=== PATIENT | female | born 1990 | race African-American/Black ===

== ENCOUNTER 2020-01-08 14:08 | Emergency (ER) | payer SELFPAY ==
[~2020-01-08] VITALS: Ht 165.1 cm; Wt 45.5 kg
[2020-01-08] MEDS ORDERED: IV NORMAL SALINE 1000ML BAG 1,000 ML IV ONE (15:00)
[2020-01-08] MEDS ORDERED: KETOROLAC 15 MG/ML VIAL. IVP ONE (15:30)
[2020-01-08] MEDS ORDERED: FAMOTIDINE 20 MG/2 ML VIAL IVP ONE (15:30)
[2020-01-08] MEDS ORDERED: ONDANSETRON PF 4 MG/2 ML VIAL. IVP ONE ×2 (15:30→17:30)
[2020-01-08 15:37] LABS: BASO % 0 % (0-3); EOS % 0 % (0-3); HEMOGLOBIN 13.8 g/dL (12.0-15.5); LYMPH # 1.2 x10^3/uL (1.0-4.8); LYMPH % 25 % (24-48); MEAN CORPUSCULAR HEMOGLOBIN 34 pg (25-35); MEAN CORPUSCULAR HGB CONC 34 g/dL (31-37); MEAN CORPUSCULAR VOLUME 100 fL (79-100); MONO # 0.3 x10^3/uL (0.0-1.1); MONO % 6 % (0-9); NEUT # 3.5 x10^3/uL (1.8-7.7); NEUT % 69 % (31-73); PLATELET COUNT 231 x10^3/uL (140-400); RED BLOOD COUNT 4.09 x10^6/uL (3.50-5.40); RED CELL DISTRIBUTION WIDTH 15.3 % (11.5-14.5); WHITE BLOOD COUNT 5.1 x10^3/uL (4.0-11.0)
[2020-01-08] MEDS ORDERED: IOHEXOL 300 MG/ML 100ML VIAL. IV ONE (15:45)
[2020-01-08] MEDS ORDERED: CONTRAST GIVEN. MC PRN (15:45)
[2020-01-08 15:47] LABS: PROTHROMBIN TIME PATIENT 13.5 SEC (11.7-14.0)
[2020-01-08 15:48] LABS: CALCIUM 9.6 mg/dL (8.5-10.1); GFR 78.2; POTASSIUM 3.6 mmol/L (3.5-5.1)
[2020-01-08 15:56] LABS: PREG TEST PT QUAL NEGATIVE (NEG)
[2020-01-08 16:06] LABS: ALBUMIN 4.1 g/dL (3.4-5.0); ALBUMIN/GLOBULIN RATIO 1.2 (1.0-1.7); MAGNESIUM 1.6 mg/dL (1.8-2.4); TOTAL BILIRUBIN 0.4 mg/dL (0.2-1.0); TOTAL PROTEIN 7.6 g/dL (6.4-8.2)
--- NOTE | 2020-01-08 16:48 | RAD ---
Study: CT abdomen/pelvis with intravenous contrast Indication: Right lower quadrant pain. Comparison: 06/27/2019 Technique: Helical CT imaging performed of the abdomen and pelvis after the intravenous administration of 75 cc Omnipaque 300 contrast. Sagittal and coronal reformats were obtained. One or more of the following individualized dose reduction techniques were utilized for this examination: 1. Automated exposure control 2. Adjustment of the mA and/or kV according to patient size 3. Use of iterative reconstruction technique. Findings: Chest: Unremarkable. Liver: Low-attenuation of the liver relative to the spleen. This could be in part related to bolus timing though a component of fatty infiltration is difficult to exclude. Gallbladder/Biliary Tree: Within normal limits. Pancreas: Unremarkable. Spleen: Within normal limits for size. Adrenal Glands: Unremarkable. Kidneys/Ureters/Bladder: Symmetric renal enhancement. The tiny intrarenal stone seen on the right on the 06/27/2019 comparison is not well visualized. No hydronephrosis. Unremarkable bladder. Reproductive Organs: Within normal limits for patient age. Colon: Large portion of the colon is not well evaluated due to a combination of underdistention and the lack of oral contrast. There does appear to be a small amount of free fluid within the right paracolic gutter such as on image 38 series 2 but the cause of this finding is uncertain and not definitively associated with the colon. Appendix: The appendix is not well seen a tubular structure at the right lower quadrant, image 39 series 2, appears to represent the right ovarian vein. Small Bowel: No findings to suggest obstruction. Stomach: Not well evaluated due to lack of distention and oral contrast. A crescentic region of fluid attenuation with surrounding enhancement at the ventral upper abdominal midline, image 28 series 2, appears to represent the distal stomach near the gastroduodenal junction. Vasculature: Nonaneurysmal aorta. Asymmetric engorgement of left hemipelvic veins. The right ovarian vein appears distended and is hypoattenuating until it approaches its IVC insertion but without ancillary findings to suggest thrombosis. Lymph Nodes: Within normal limits. Peritoneum and Body Wall: As above, small amount of fluid along the right paracolic gutter. No large volume free fluid within the pelvis. Bones: No acute or aggressive osseous process. Miscellaneous: None. Impression: 1. The study is made difficult by combination of patient body habitus with a paucity of mesenteric fat in addition to the lack of oral contrast. The appendix is not able to be well delineated. There does appear to be a small amount of free fluid within the right paracolic gutter but the etiology of this is uncertain. Note is made that no structure resembling the appendix is identified nor localized inflammatory changes at its expected location to suggest appendicitis. 2. Asymmetric engorgement of the left-sided pelvic veins. The presumed right ovarian vein is somewhat distended but without findings definitive of ovarian vein thrombosis. A process such as pelvic congestion is possible but this is typically a clinical diagnosis. 3. Additional observations as above. Electronically signed by: BILL COLE MD (01/08/2020 4:46 PM) [id number]
--- NOTE | 2020-01-08 17:12 | PHYS DOC ---
Past Medical History Past Medical History: Other Additional Past Medical Histor: Endometriosis, MALROTATION (SARA SMITH DO) Past Surgical History: Tubal ligation (SARA SMITH DO) Smoking Status: Current Every Day Smoker Alcohol Use: Occasionally Drug Use: Marijuana (SARA SMITH DO) General Adult EDM: Chief Complaint: ABDOMINAL PAIN HPI: HPI: Mrs. Villalobos is a 29-year-old -[place] female who presents with 2-day history of worsening right lower quadrant abdominal/pelvic pain. She reports waves of sharp and cramping abdominal/pelvic pain lasting 10 to 15 minutes which gives her a 10 out of 10 abdominal pain, between episodes she reports a 4 out of 10 abdominal pain. Her pain is non-radiating. She has associated nausea and vomiting over the last 2 days and has been unable to eat anything. Patient states that there is very little probability of her being due to her tubal ligation. She reports low probability of STIs as she is a monogamous relationship with . She is currently on her menstrual period. She describes her typical menstrual pain as similar but much less severe. Last bowel movement was this morning, it was normal in consistency. Patient denies any dysuria. 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 (SARA SMITH DO) Current Medications: Current Medications Medications (Trade) Dose Ordered Sig/Marc Start Time Stop Time Status Last Admin Dose Admin Famotidine (Pepcid Vial) 20 mg 1X ONCE 01/08/20 15:30 01/08/20 15:31 DC 01/08/20 15:35 20 MG Info (CONTRAST GIVEN -- Rx MONITORING) 1 each PRN DAILY PRN 01/08/20 15:45 01/10/20 15:44 Iohexol (Omnipaque 300 Mg/ml) 75 ml 1X ONCE 01/08/20 15:45 01/08/20 15:46 DC 01/08/20 16:14 75 ML Ketorolac Tromethamine (Toradol 15mg Vial) 15 mg 1X ONCE 01/08/20 15:30 01/08/20 15:31 DC 01/08/20 16:44 15 MG Ondansetron HCl (Zofran) 4 mg 1X ONCE 01/08/20 15:30 01/08/20 15:31 DC 01/08/20 15:30 4 MG Sodium Chloride 1,000 ml @ 1,000 mls/hr 1X ONCE 01/08/20 15:00 01/08/20 15:59 DC 01/08/20 15:30 1,000 MLS/HR (SARA SMITH DO) Allergies: Allergies: Allergies Coded Allergies Type Severity Reaction Last Updated Verified No Known Drug Allergies 01/08/20 No (SARA SMITH DO) Physical Exam: PE: Constitutional: Patient appears to be in acute abdominal pain hunched over holding her abdomen. Appears uncomfortable and in pain HENT: Normocephalic, atraumatic. Cranial nerves II through XII grossly intact bilaterally. Eyes: Conjunctiva normal, no discharge Neck: Normal range of motion, no tenderness, supple Lungs & Thorax: No respiratory distress, equal breath sounds bilaterally Heart: Regular rate and rhythm no murmurs normal S1 and S2. S3 and S4 not heard. Abdomen: Mild guarding. Abdomen only mildly tender to palpation in the right lower quadrant. Positive rebound tenderness, negative heel strike Pelvic Exam: Manager Of Procurement RN, scant blood noted in vaginal vault, no CMT, mild right adnexal tenderness, Back: No tenderness, mild CVA tenderness on right Extremities: No tenderness, ROM intact, no edema Neurologic: Alert and oriented X 3, normal motor function, normal sensory function, no focal deficits noted Psychologic: Affect anxious, judgment normal (SARA SMITH DO) Current Patient Data: Labs: Laboratory Tests Test 01/08/20 15:10 01/08/20 15:19 Serum Test, Qualitative Negative (NEG) White Blood Count 5.1 x10^3/uL (4.0-11.0) Red Blood Count 4.09 x10^6/uL (3.50-5.40) Hemoglobin 13.8 g/dL (12.0-15.5) Hematocrit 41.0 % (36.0-47.0) Mean Corpuscular Volume 100 fL (79-100) Mean Corpuscular Hemoglobin 34 pg (25-35) Mean Corpuscular Hemoglobin Concent 34 g/dL (31-37) Red Cell Distribution Width 15.3 % (11.5-14.5) H Platelet Count 231 x10^3/uL (140-400) Neutrophils (%) (Auto) 69 % (31-73) Lymphocytes (%) (Auto) 25 % (24-48) Monocytes (%) (Auto) 6 % (0-9) Eosinophils (%) (Auto) 0 % (0-3) Basophils (%) (Auto) 0 % (0-3) Neutrophils # (Auto) 3.5 x10^3/uL (1.8-7.7) Lymphocytes # (Auto) 1.2 x10^3/uL (1.0-4.8) Monocytes # (Auto) 0.3 x10^3/uL (0.0-1.1) Eosinophils # (Auto) 0.0 x10^3/uL (0.0-0.7) Basophils # (Auto) 0.0 x10^3/uL (0.0-0.2) Prothrombin Time 13.5 SEC (11.7-14.0) Prothrombin Time INR 1.1 (0.8-1.1) Activated Partial Thromboplast Time 30 SEC (24-38) Sodium Level 141 mmol/L (136-145) Potassium Level 3.6 mmol/L (3.5-5.1) Chloride Level 104 mmol/L (98-107) Carbon Dioxide Level 21 mmol/L (21-32) Anion Gap 16 (6-14) H Blood Urea Nitrogen 10 mg/dL (7-20) Creatinine 1.0 mg/dL (0.6-1.0) Estimated GFR (Cockcroft-Gault) 78.2 BUN/Creatinine Ratio 10 (6-20) Glucose Level 133 mg/dL (70-99) H Calcium Level 9.6 mg/dL (8.5-10.1) Magnesium Level 1.6 mg/dL (1.8-2.4) L Total Bilirubin 0.4 mg/dL (0.2-1.0) Aspartate Amino Transferase (AST) 42 U/L (15-37) H Alanine Aminotransferase (ALT) 36 U/L (14-59) Alkaline Phosphatase 49 U/L (46-116) Total Protein 7.6 g/dL (6.4-8.2) Albumin 4.1 g/dL (3.4-5.0) Albumin/Globulin Ratio 1.2 (1.0-1.7) Lipase 67 U/L (73-393) L Laboratory Tests 01/08/20 15:19 Laboratory Tests 01/08/20 15:19 Vital Signs: Vital Signs Date Time Temp Pulse Resp B/P (MAP) Pulse Ox O2 Delivery O2 Flow Rate FiO2 01/08/20 14:55 51 22 106/53 (70) 99 Room Air (SARA SMITH DO) EKG: EKG: [] (SARA SMITH DO) Radiology/Procedures: Radiology/Procedures: PROCEDURE: CT ABD PELV W/ IV CONTRST ONLY Study: CT abdomen/pelvis with intravenous contrast Indication: Right lower quadrant pain. Comparison: 06/27/2019 Technique: Helical CT imaging performed of the abdomen and pelvis after the intravenous administration of 75 cc Omnipaque 300 contrast. Sagittal and coronal reformats were obtained. One or more of the following individualized dose reduction techniques were utilized for this examination: 1. Automated exposure control 2. Adjustment of the mA and/or kV according to patient size 3. Use of iterative reconstruction technique. Findings: Chest: Unremarkable. Liver: Low-attenuation of the liver relative to the spleen. This could be in part related to bolus timing though a component of fatty infiltration is difficult to exclude. Gallbladder/Biliary Tree: Within normal limits. Pancreas: Unremarkable. Spleen: Within normal limits for size. Adrenal Glands: Unremarkable. Kidneys/Ureters/Bladder: Symmetric renal enhancement. The tiny intrarenal stone seen on the right on the 06/27/2019 comparison is not well visualized. No hydronephrosis. Unremarkable bladder. Reproductive Organs: Within normal limits for patient age. Colon: Large portion of the colon is not well evaluated due to a combination of underdistention and the lack of oral contrast. There does appear to be a small amount of free fluid within the right paracolic gutter such as on image 38 series 2 but the cause of this finding is uncertain and not definitively associated with the colon. Appendix: The appendix is not well seen a tubular structure at the right lower quadrant, image 39 series 2, appears to represent the right ovarian vein. Small Bowel: No findings to suggest obstruction. Stomach: Not well evaluated due to lack of distention and oral contrast. A crescentic region of fluid attenuation with surrounding enhancement at the ventral upper abdominal midline, image 28 series 2, appears to represent the distal stomach near the gastroduodenal junction. Vasculature: Nonaneurysmal aorta. Asymmetric engorgement of left hemipelvic veins. The right ovarian vein appears distended and is hypoattenuating until it approaches its IVC insertion but without ancillary findings to suggest thrombosis. Lymph Nodes: Within normal limits. Peritoneum and Body Wall: As above, small amount of fluid along the right paracolic gutter. No large volume free fluid within the pelvis. Bones: No acute or aggressive osseous process. Miscellaneous: None. Impression: 1. The study is made difficult by combination of patient body habitus with a paucity of mesenteric fat in addition to the lack of oral contrast. The appendix is not able to be well delineated. There does appear to be a small amount of free fluid within the right paracolic gutter but the etiology of this is uncertain. Note is made that no structure resembling the appendix is identified nor localized inflammatory changes at its expected location to suggest appendicitis. 2. Asymmetric engorgement of the left-sided pelvic veins. The presumed right ovarian vein is somewhat distended but without findings definitive of ovarian vein thrombosis. A process such as pelvic congestion is possible but this is typically a clinical diagnosis. 3. Additional observations as above. Electronically signed by: BILL COLE MD (01/08/2020 4:46 PM) [id number] (SARA SMITH DO) Radiology/Procedures: IMAGING REPORT Signed PATIENT: RUBA VILLALOBOS ACCOUNT: [id number] : 1990 LOCATION: ER AGE: 29 SEX: F EXAM STATUS: REG ER ORD. PHYSICIAN: SARA SMITH DO REASON: right adnexal tenderness, eval for torsion PROCEDURE: PELVIS COMPLETE ADDENDUM ADDENDUM #1 Addendum: The patient returned for the transvaginal portion of the study. The additional findings are as follows: The right ovary measures 2.2 x 1.6 x 1.5 cm. The left ovary measures 2.3 x 1.5 x 1.5 cm. No complex cyst or mass seen on either side. Doppler flow is maintained to both ovaries. As seen on the transabdominal portion of the exam, distended pelvic veins on both the right and left. Trace amount of free fluid within the pelvic cul-de-sac. The uterus on transvaginal imaging measures 8.4 x 4.5 x 4.3 cm and the endometrium again at 0.4 cm. No newly seen abnormality of the uterus or endometrium on the transvaginal exam. IMPRESSION: 1. Unremarkable uterus, endometrium and bilateral ovaries. No evidence for torsion. 2. Distended pelvic veins could be physiologic/within normal limits for this patient though this configuration can be seen with pelvic congestion. Electronically signed by: BILL COLE MD (01/08/2020 7:33 PM) [id number] (FOX DUBON DO) Course & Med Decision Making: Course & Med Decision Making 29-year-old -[place] female with acute right lower quadrant abdominal pain/pelvic pain. Hx of endometriosis and bilateral tubal ligation. Preg negative. Labs obtained and posted to chart. UA without signs of infection. CT showed fluid in the right paracolic gutter and right right ovarian vein engorgement which may be indicative of ruptured ovarian cyst. CT seem to be negative for acute appendicitis although unable to definitely see appendix. Patient initially unable to complete transvaginal Doppler ultrasound. Pelvic exam performed. Wet mount pending. Chalamydia/gonorrhea cultures also pending- patient declined empiric antibiotic therapy. Pain and nausea better controlled. Continued concern for possible torsion. US therefore continued with transvaginal portion utilized and pending. Sign out given to Dr. Dubon for further evaluation and final disposition. Discussed current findings and plan with patient, who acknowledges understanding and agreement. (SARA SMITH DO) Course & Med Decision Making Concern for right adnexal pain with nausea and nonbloody nonbilious vomiting. On reevaluation patient states pain has significantly improved and is she is no longer nauseous, is resting comfortably. I did offer admission but patient states her pain is well controlled and she declined. Patient was educated that we did not rule out appendicitis -appendix is not visualized on CT imaging although theres no surrounding inflammation/edema which be consistent with appendicitis. Concern pain is due to right ovarian cyst rupture. Patient was given strict ED return precautions for worsening pain, nausea, vomiting or dehydration or fever. Encouraged urgent outpatient follow-up with PMD and FRAME CATCHER. Life-threatening processes were considered but are low suspicion at this time, given history and physical exam. Pt was educated on all prescription medications and adverse effects. All patient's questions were answered and pt was stable at time of discharge. Differential includes aortic dissection, aortic aneurysm, acute coronary syndrome, surgical abdomen (appendicitis, cholecystitis, ischemic bowel, strangulated hernia, etc), bowel obstruction or volvulus, bladder outlet obstruction, gastrointestinal bleeding, inflammatory bowel disease, peptic ulcer disease, sepsis, diverticular disease, ureterolithiasis, nephrolithiasis, ovarian torsion, ectopic I spoken with the patient and her caregivers. I explained the patient's con dition, diagnoses and treatment plan based on the information available to me at this time. I have answered the patient and her caregiver's questions and addressed any concerns. The patient and her caregivers have a good understanding of patient's diagnosis, condition and treatment plan as can be expected at this point. Vital signs have been stable. Patient's condition is stable and appropriate for discharge from the emergency department. Patient will pursue further outpatient evaluation with primary care physician or other designated or consulting physician as outlined in the discharge instructions. The patient and/or caregivers are agreeable to this plan of care and follow-up instructions have been explained in detail. The patient and/or caregivers have received these instructions in written form and have expressed an understanding of the discharge instructions. The patient and/or caregivers are aware that any significant change of condition or worsening of symptoms should prompt immediate return to this or the closest emergency department or call to 911. (FOX HAMEED DO) Vivi Disclaimer: Vivi Disclaimer: This electronic medical record was generated, in whole or in part, using a voice recognition dictation system. (SARA SMITH DO) Departure Departure Impression: Primary Impression: Pelvic pain Additional Impression: Nausea & vomiting Qualified Codes: R11.2 - Nausea with vomiting, unspecified Disposition: HOME, SELF-CARE Condition: STABLE Referrals: NO PCP (PCP) Patient Instructions: Nausea and Vomiting, Pelvic Pain, Female Additional Instructions: Cecilia Anna MD Obstetrics and Gynecology Address: [address] [facility], [place] [address] Scripts Ondansetron Hcl (ZOFRAN) 4 Mg Tablet 1 TAB PO PRN Q6-8HRS for nausea, #12 TAB Prov: FOX DUBON DO 01/08/20 Justicifation of Admission Dx: Justifications for Admission: Justification of Admission Dx: N/A (SARA SMITH DO) Justification of Admission Dx: N/A (FOX DUBON DO) SARA SMITH DO Jan 08, 2020 17:12 FOX DUBON DO Jan 08, 2020 19:50
[2020-01-08] MEDS ORDERED: fentaNYL PF VIAL 100 MCG/2 ML VIAL IV ONE (17:30)
--- NOTE | 2020-01-08 17:33 | RAD ---
STUDY: US PELVIS COMPLETE HISTORY: Right adnexal tenderness. Portion evaluation. COMPARISON: Same day CT abdomen/pelvis; pelvic ultrasound 08/15/2017 TECHNIQUE: Pelvic ultrasound was performed with a transabdominal probe. FINDINGS: The patient requested not to undergo transvaginal imaging. Neither ovary was able to be visualized due to bowel gas. The uterus measures 8.7 x 4.3 x 3.7 cm. Uterine parenchymal echotexture is within normal limits. The endometrial echo is within normal limits at 0.4 cm. Prominent bilateral pelvic veins which were also noted on the 2018 comparison. IMPRESSION: 1. Limited study as neither ovary was able to be visualized due to bowel gas. Note is made that the patient requested not to undergo transvaginal imaging. 2. Unremarkable uterus and endometrium. 3. Distended bilateral pelvic veins which was also described on the 08/15/2017 pelvic ultrasound. Again this could be within the broad range of normal for this patient or indicative of pelvic congestion. Electronically signed by: BILL COLE MD (01/08/2020 5:30 PM) [id number]
[2020-01-08 18:03] LABS: BILIRUBIN,URINE NEGATIVE (NEG); CLARITY,URINE CLEAR; COLOR,URINE YELLOW; NITRITE,URINE NEGATIVE (NEG); PH,URINE 8.5 (<5.0-8.0); PROTEIN,URINE NEGATIVE (NEG-TRACE); UROBILINOGEN,URINE 0.2 mg/dL (0.2 mg/dL)
[2020-01-08 18:06] LABS: SQUAMOUS EPITHELIAL CELL,UR FEW /LPF
[2020-01-08 18:08] LABS: BACTERIA,URINE 0 /HPF (0-FEW)
[2020-01-08] MEDS ORDERED: METOCLOPRAMIDE HCL 10 MG/2 ML VIAL. IVP ONE (18:30)
[2020-01-08] MEDS ORDERED: diphenhydrAMINE 50 MG/ML VIAL IVP ONE (18:30)
[2020-01-08 18:51] VITALS: BP 132/58
[2020-01-08] MEDS ORDERED: ONDA4TAB7 PO (20:15)
[2020-01-10 21:07] LABS: GC PROBE Negative (Negative)
== END 2020-01-08 20:39 | disposition home or self-care (01) ==
LOC: ER 14:08
DX: R10.2 Pelvic and perineal pain (principal); R11.2 Nausea with vomiting, unspecified; R10.31 Right lower quadrant pain; F17.200 Nicotine dependence, unspecified, uncomplicated; F12.90 Cannabis use, unspecified, uncomplicated; Z98.51 Tubal ligation status
CPT/HCPCS: 74177; 76856; 80053; 81001; 83690; 83735; 84703; 85025; 85610; 85730; 87491; 87591; 96361; 96374; 96375; 96376; 99285; J1200; J1885; J2405; J2765; J3010; J3490; J7030; Q0111; Q9967